=== PATIENT | female | born 1940 | race Caucasian/White ===

== ENCOUNTER 2017-05-21 22:41 | Emergency (ER) | payer MEDICARE, OTHER ==
[2017-05-21] MEDS ORDERED: LORazepam 0.5 MG Tab PO ONE (23:08)
--- NOTE | 2017-05-21 23:08 | EDM.PDOC ---
ED HPI GENERAL MEDICAL PROBLEM - General Chief Complaint: General Stated Complaint: PT BLOOD PRESSURE HIGH Time Seen by Provider: 05/21/17 22:59 - History of Present Illness INITIAL COMMENTS - FREE TEXT/NARRATIVE: HISTORY AND PHYSICAL: History of present illness: The patient is a 76-year-old female who follows in our family practice clinic and actually has a scheduled appointment tomorrow with Dr. Low for discussion about her blood pressure and presents tonight saying that it increased more significantly and she is concerned. The patient says she's been under a lot of stress this year as her was very ill and recently in March. She has noted over the last few months that her blood pressures been on the higher side and in fact had her lisinopril doubled to 20 mg once a day in March. She has a follow-up appointment scheduled tomorrow and she says over the last week or so it has been running on the higher side with systolics in the 160s. This evening she checked it and it was 188 which made her very nervous and anxious and then she took it again on the other side and it was elevated to the 200s so she came for evaluation. The patient has been eating and drinking normally and has not had increased sodium in her diet. She has no swelling in her legs no chest pain no shortness of breath abdominal pain or vomiting and no urinary complaints. She is not lightheaded or dizzy and has no headaches. She has no weakness or neurosensory changes in her extremities. She admits that she has been very anxious since the of her and she is anxious about her blood pressure. Review of systems: As per history of present illness and below otherwise all systems reviewed and negative. Past medical history: As per history of present illness and as reviewed below otherwise noncontributory. Surgical history: As per history of present illness and as reviewed below otherwise noncontributory. Social history: No reported history of drug or alcohol abuse. Family history: As per history of present illness and as reviewed below otherwise noncontributory. Physical exam: Gen.: Well-developed well-nourished male who is nontoxic and moves easily in the ED. Her blood pressure of 235/117 as noted by me. Clearly and easily HEENT: Atraumatic, normocephalic, pupils reactive, negative for conjunctival pallor or scleral icterus, mucous membranes moist, throat clear, neck supple, nontender, trachea midline. Lungs: Clear to auscultation, breath sounds equal bilaterally, chest nontender. Heart: S1S2, regular, negative for clicks, rubs, or JVD. Abdomen: Soft, nondistended, nontender. Negative for masses or hepatosplenomegaly. NABS. Pelvis: Stable nontender. Genitourinary: Deferred. Rectal: Deferred. Extremities: Atraumatic, negative for cords or calf pain. Neurovascular unremarkable. No pedal edema or leg asymmetry Neuro: Awake, alert, oriented. Cranial nerves II through XII unremarkable. Cerebellum unremarkable. Motor and sensory unremarkable throughout. Exam nonfocal. Diagnostics: EKG chest x-ray CBC CMP troponin UA urine culture Therapeutics: Ativan by mouth, lisinopril 10 mg Patient's current blood pressure at 0040 is 181/112. I will give the patient an extra dose of lisinopril and reevaluate. 0120: Patient's current blood pressure is 158/96 she is aware of all testing results including the early UTI. I will give her a prescription for antibiotics as she does not want to fill them via [facility]. I have told her to keep her appointment at [address] Au to discuss her blood pressure medication dosing and to inform him that she was here this evening and that he can look at her testing results and my note. She is comfortable with discharge home with follow-up in the morning. Impression: Hypertension poorly controlled, stable improved, early UTI Definitive disposition and diagnosis as appropriate pending reevaluation and review of above. - Related Data Allergies Allergy/AdvReac Type Severity Reaction Status Date / Time No Known Allergies Allergy Verified 05/21/17 23:09 Home Meds: Home Meds Ascorbic Acid [Vitamin C] 500 mg PO DAILY 05/21/17 [History] Aspirin 81 mg PO DAILY 05/21/17 [History] Calcium Carbonate [Calcium] 1,200 mg PO DAILY 05/21/17 [History] Escitalopram Oxalate 10 mg PO DAILY 05/21/17 [History] Fish Oil/[place]-3 Fatty Acids [Fish Oil 1,000 MG] 1 cap PO DAILY 05/21/17 [ History] Lisinopril 20 mg PO DAILY 05/21/17 [History] Magnesium 500 mg PO DAILY 05/21/17 [History] Multivitamin [Multi-Vitamin Daily] 1 tab PO DAILY 05/21/17 [History] ED ROS GENERAL - Review of Systems Review Of Systems: ROS reveals no pertinent complaints other than HPI. ED EXAM, GENERAL - Physical Exam Exam: See Below (see dictation) Course - Vital Signs Last Recorded V/S: Last Vital Signs Temp 36.3 C 05/21/17 22:41 Pulse 64 05/22/17 00:36 Resp 13 05/22/17 00:36 BP 183/104 H 05/22/17 00:46 Pulse Ox 100 05/22/17 00:36 - Orders/Labs/Meds Orders: Active Orders 24 hr Category Date Time Status EKG Documentation Completion [RC] STAT Care 05/21/17 23:05 Active Chest 1V Frontal [CR] Stat Exams 05/21/17 23:06 Taken CULTURE URINE [RM] Stat Lab 05/22/17 00:35 Received UA W/MICROSCOPIC [URIN] Stat Lab 05/22/17 01:19 Ordered Labs: Laboratory Tests 05/21/17 05/21/17 05/22/17 Range/Units 23:34 23:34 00:35 WBC 6.05 (4.0-11.0) K/uL RBC 4.32 (4.30-5.90) M/uL Hgb 13.4 (12.0-16.0) g/dL Hct 40.2 (36.0-46.0) % MCV 93.1 (80.0-98.0) fL MCH 31.0 (27.0-32.0) pg MCHC 33.3 (31.0-37.0) g/dL RDW Std Deviation 47.1 (28.0-62.0) fl RDW Coeff of [place] 14 (11.0-15.0) % Plt Count 207 (150-400) K/uL MPV 9.90 (7.40-12.00) fL Neut % (Auto) 54.4 (48.0-80.0) % Lymph % (Auto) 34.9 (16.0-40.0) % [place] % (Auto) 8.1 (0.0-15.0) % Eos % (Auto) 2.1 (0.0-7.0) % Baso % (Auto) 0.5 (0.0-1.5) % Neut # (Auto) 3.3 (1.4-5.7) K/uL Lymph # (Auto) 2.1 (0.6-2.4) K/uL [place] # (Auto) 0.5 (0.0-0.8) K/uL Eos # (Auto) 0.1 (0.0-0.7) K/uL Baso # (Auto) 0.0 (0.0-0.1) K/uL Nucleated RBC % 0.0 /100WBC Nucleated RBCs # 0 K/uL Sodium 142 (136-146) mmol/L Potassium 3.8 (3.5-5.1) mmol/L Chloride 104 (98-110) mmol/L Carbon Dioxide 27 (21-31) mmol/L BUN 18 (6.0-23.0) mg/dL Creatinine 0.8 (0.6-1.5) mg/dL Est Cr Clr Drug Dosing TNP Estimated GFR (MDRD) > 60.0 ml/min Glucose 118 H (60-110) mg/dL Calcium 10.5 (8.8-10.8) mg/dL Total Bilirubin 0.5 (0.1-1.5) mg/dL AST 29 (5-40) IU/L ALT 28 (8-54) IU/L Alkaline Phosphatase 46 (40-150) Troponin I < 0.10 (0.0-0.29) NG/ML Total Protein 7.3 (6.0-8.0) g/dL Albumin 4.5 (3.4-4.8) g/dL Globulin 2.8 (2.0-3.5) g/dL Albumin/Globulin Ratio 1.6 (1.3-2.8) Urine Color YELLOW Urine Appearance HAZY Urine pH 7.5 (5.0-8.0) Ur Specific [place] 1.010 (1.001-1.035) Urine Protein NEGATIVE (NEGATIVE) mg/dL Urine Glucose (UA) NEGATIVE (NEGATIVE) mg/dL Urine Ketones NEGATIVE (NEGATIVE) mg/dL Urine Occult Blood TRACE-LYSED (NEGATIVE) Urine Nitrite NEGATIVE (NEGATIVE) Urine Bilirubin NEGATIVE (NEGATIVE) Urine Urobilinogen 0.2 (<2.0) EU/dL Ur Leukocyte Esterase MODERATE (NEGATIVE) Urine RBC 1-2 (0-2/HPF) Urine WBC 6-8 (0-5/HPF) Ur Epithelial Cells FEW (NONE-FEW) Urine Bacteria FEW (NEGATIVE) Meds: Medications Discontinued Medications Generic Name Dose Route Start Last Admin Trade Name Rei PRN Reason Stop Dose Admin Lisinopril 10 mg 05/22/17 00:40 05/22/17 00:46 Prinivil PO 05/22/17 00:41 10 mg ONETIME ONE Administration Lorazepam 0.5 mg 05/21/17 23:08 05/21/17 23:17 Ativan PO 05/21/17 23:09 0.5 mg ONETIME ONE Administration Departure - Departure Time of Disposition: Disposition: Home, Self-Care 01 Condition: Good Clinical Impression: Poorly-controlled hypertension UTI (urinary tract infection) Qualifiers: Urinary tract infection type: site unspecified Hematuria presence: without hematuria Qualified Code(s): N39.0 - Urinary tract infection, site not specified - Discharge Information Referrals: PCP,None [Primary Care Provider] - Forms: ED Department Discharge Additional Instructions: The following information is given to patients seen in the emergency department who are being discharged to home. This information is to outline your options for follow-up care. We provide all patients seen in our emergency department with a follow-up referral. The need for follow-up, as well as the timing and circumstances, are variable depending upon the specifics of your emergency department visit. If you don't have a primary care physician on staff, we will provide you with a referral. We always advise you to contact your personal physician following an emergency department visit to inform them of the circumstance of the visit and for follow-up with them and/or the need for any referrals to a consulting specialist. The emergency department will also refer you to a specialist when appropriate. This referral assures that you have the opportunity for followup care with a specialist. All of these measure are taken in an effort to provide you with optimal care, which includes your followup. Under all circumstances we always encourage you to contact your private physician who remains a resource for coordinating your care. When calling for followup care, please make the office aware that this follow-up is from your recent emergency room visit. If for any reason you are refused follow-up, please contact the [facility] emergency department at and ask to speak to the emergency department charge nurse. [facility] Primary care- Internal Medicine and Family [place] [id number] [place] [id number] Please keep your appointment this morning in the clinic with Dr. Low and inform him of melisa's visit so that he can review the labs and my notes. Please take your lisinopril in the morning as you normally do. He states her blood pressure before taking those meds. Return to ER as needed and as discussed. - My Orders Last 24 Hours: My Active Orders 05/21/17 23:05 EKG Documentation Completion [RC] STAT 05/21/17 23:06 Chest 1V Frontal [CR] Stat 05/22/17 00:35 CULTURE URINE [RM] Stat 05/22/17 01:19 UA W/MICROSCOPIC [URIN] Stat - Assessment/Plan Last 24 Hours: My Active Orders 05/21/17 23:05 EKG Documentation Completion [RC] STAT 05/21/17 23:06 Chest 1V Frontal [CR] Stat 05/22/17 00:35 CULTURE URINE [RM] Stat 05/22/17 01:19 UA W/MICROSCOPIC [URIN] Stat
[2017-05-22 00:28] LABS: CHLORIDE,CL 104 mmol/L (98-110); SODIUM,NA 142 mmol/L (136-146)
[2017-05-22] MEDS ORDERED: Lisinopril 10 MG Tab PO ONE (00:40)
--- NOTE | 2017-05-22 10:16 | CR ---
EXAM DATE: 05/21/17 PATIENT'S AGE: 76 Patient: GAVINO DUVAL Facility: [place], [place] Site . Site : 1940 Study: XRay Chest [id number]/13/2018 11:36:34 PM Ordering Physician: Doctor Rivera Final Report: INDICATION: Hypertension, shortness of breath TECHNIQUE: Chest radiograph 2 views COMPARISON: 09/01/13 FINDINGS: Mediastinum: The heart silhouette is normal in size and morphology. The mediastinum is normal in appearance. Lungs: Both lungs are unremarkable in appearance. Mild right apical pleural scarring noted. No sign of pleural effusion seen. No pneumothorax is identified. Bones and soft tissue: Unremarkable for age. IMPRESSION: 1. No acute cardiopulmonary disease is seen. Dictated by: Rachid Lopez MD @ 05/21/2017 23:38:00 (Electronic Signature) Report Signed by Proxy. MTDAndi
== END 2017-05-22 01:50 | disposition home or self-care (01) ==
LOC: MW.ED 22:41
DX: I10 Essential (primary) hypertension (principal); N39.0 Urinary tract infection, site not specified; Z79.82 Long term (current) use of aspirin; Z79.899 Other long term (current) drug therapy; F41.9 Anxiety disorder, unspecified
CPT/HCPCS: 36415; 71045; 80053; 81001; 84484; 85025; 87086; 93005; 99284; A9270; G0463; 99213

== ENCOUNTER 2018-07-15 11:41 | Day surgery (SDC) | payer MEDICARE, OTHER ==
[~2018-07-15 11:41] MED LIST: Lactated Ringers 1,000 ML IV SCH; Midazolam 1 MG/ML 2 ML SDV ONE; Propofol 200 MG/20 ML SDV ONE; Sodium Chloride 0.9% 10 ML SDV IV PRN; Sodium Chloride 0.9% 10 ML Syringe FLUSH PRN; Sodium Chloride 0.9% 2.5 ML Syringe FLUSH PRN; fentaNYL 100 MCG/2 ML SDV ONE
--- NOTE | 2018-07-15 12:44 | PCM.PREANE ---
Preanesthetic Assessment - Anesthesia/Transfusion/Family Hx Anesthesia History: Prior Anesthesia Without Reaction Family History of Anesthesia Reaction: No Transfusion History: No Prior Transfusion(s) - Review of Systems General: No Symptoms Pulmonary: No Symptoms Cardiovascular: No Symptoms Gastrointestinal: No Symptoms Neurological: No Symptoms Other: Reports: None - Physical Assessment NPO Status Date: 07/14/18 Height: 5 ft 7 in Weight: 67.132 kg ASA Class: 2 Mental Status: Alert & Oriented x3 Airway Class: Mallampati = 2 Dentition: Reports: Bridge ROM/Head Extension: Full Lungs: Clear to Auscultation, Normal Respiratory Effort Cardiovascular: Regular Rate, Regular Rhythm - Allergies Allergies/Adverse Reactions: Allergies Allergy/AdvReac Type Severity Reaction Status Date / Time atenolol Allergy Fainting Verified 07/14/18 09:00 desvenlafaxine [From Pristiq] Allergy Nausea Verified 07/14/18 09:00 lisinopril Allergy Cough Verified 07/14/18 09:00 - Blood Blood Available: No - Anesthesia Plan Pre-Op Medication Ordered: None - Acknowledgements Anesthesia Type Planned: General Anesthesia, MAC Pt an Appropriate Candidate for the Planned Anesthesia: Yes Alternatives and Risks of Anesthesia Discussed w Pt/Guardian: Yes Pt/Guardian Understands and Agrees with Anesthesia Plan: Yes Additional Comments: PMH: htn, hld, benign essential tremur PLAN: mac/tiva PreAnesthesia Questionnaire - Past Health History Medical/Surgical History: Denies Medical/Surgical History HEENT History: Reports: Other (See Below) Other HEENT History: wears glasses, has upper and lower permanent partial dentures Cardiovascular History: Reports: Hypertension Gastrointestinal History: Reports: Chronic Constipation Genitourinary History: Reports: None 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: Neurological History: Reports: Other (See Below) Other Neuro History: mild essential tremor of hands Psychiatric History: Reports: Anxiety - Past Surgical History GI Surgical History: Reports: Colonoscopy Female Surgical History: Reports: Hysterectomy - SUBSTANCE USE Smoking Status *Q: Never Smoker Recreational Drug Use History: No - HOME MEDS Home Medications: Home Meds Ascorbic Acid [Vitamin C] 500 mg PO DAILY 05/21/17 [History] Aspirin 81 mg PO DAILY 05/21/17 [History] Fish Oil/[place]-3 Fatty Acids [Fish Oil 1,000 MG] 1,200 mg PO DAILY 05/21/17 [ History] Magnesium 500 mg PO DAILY 05/21/17 [History] Multivitamin [Multi-Vitamin Daily] 1 tab PO DAILY 05/21/17 [History] Cholecalciferol (Vitamin D3) [Vitamin D3] 1,000 unit PO DAILY 07/14/18 [History] Escitalopram Oxalate 20 mg PO BEDTIME 07/14/18 [History] Niacin 500 mg PO DAILY 07/14/18 [History] Olmesartan Medoxomil 40 mg PO BEDTIME 07/14/18 [History] hydroCHLOROthiazide [Hydrochlorothiazide] 25 mg PO DAILY 07/14/18 [History] - CURRENT (IN HOUSE) MEDS Current Meds: Current Medications Lactated Ringer's (Ringers, Lactated) 1,000 mls @ 125 mls/hr IV ASDIRECTED KIKI Sodium Chloride (Saline Flush) 10 ml FLUSH ASDIRECTED PRN PRN Reason: Keep Vein Open Sodium Chloride (Saline Flush) 2.5 ml FLUSH ASDIRECTED PRN PRN Reason: Keep Vein Open Sodium Chloride (Saline Flush) 10 ml FLUSH ASDIRECTED PRN PRN Reason: Keep Vein Open Sodium Chloride (Saline Flush) 2.5 ml FLUSH ASDIRECTED PRN PRN Reason: Keep Vein Open Sodium Chloride (Normal Saline) 10 ml IV ASDIRECTED PRN PRN Reason: IV Use Discontinued Medications Fentanyl (Sublimaze) Confirm Administered Dose 100 mcg .ROUTE .STK-MED ONE Stop: 07/15/18 07:49 Lidocaine HCl (Xylocaine-Mpf 1%) Confirm Administered Dose 5 mls @ as directed .ROUTE .STK-MED ONE Stop: 07/15/18 07:49 Midazolam HCl (Versed 1 Mg/Ml) Confirm Administered Dose 2 mg .ROUTE .STK-MED ONE Stop: 07/15/18 07:49 Propofol (Diprivan 20 Ml) Confirm Administered Dose 200 mg .ROUTE .STK-MED ONE Stop: 07/15/18 07:49
--- NOTE | 2018-07-15 13:54 | PCM.OPNOTE ---
- General Post-Op/Procedure Note Date of Surgery/Procedure: 07/15/18 Operative Procedure(s): diagnostic colonoscopy Findings: 2 sigmoid colon polyps Pre Op Diagnosis: change in bowel habits, diagnostic colonoscopy Post-Op Diagnosis: 2 sigmoid colon polyps, lax anal sphincter Anesthesia Technique: MAC Primary Surgeon: Luisa Cunningham Pathology: 2 sigmoid colon polyps EBL in mLs: 0 Condition: Good
[2018-07-15] MEDS ORDERED: Propofol 200 MG/20 ML SDV ONE (14:34)
--- NOTE | 2018-07-15 14:52 | PCM.POSTAN ---
POST ANESTHESIA ASSESSMENT - MENTAL STATUS Mental Status: Alert, Oriented - RESPIRATORY Respiratory Status: Respiratory Rate WNL, Airway Patent, O2 Saturation Stable - CARDIOVASCULAR CV Status: Pulse Rate WNL, Blood Pressure Stable - GASTROINTESTINAL GI Status: No Symptoms - POST OP HYDRATION Hydration Status: Adequate & Stable
--- NOTE | 2018-07-15 14:52 | PCM48HPAN ---
Post Anesthesia Note - EVALUATION WITHIN 48HRS OF ANESTHETIC Vital Signs in Normal Range: Yes Patient Participated in Evaluation: Yes Respiratory Function Stable: Yes Airway Patent: Yes Cardiovascular Function Stable: Yes Hydration Status Stable: Yes Pain Control Satisfactory: Yes Nausea and Vomiting Control Satisfactory: Yes Mental Status Recovered: Yes Resp Rate: 8
--- NOTE | 2018-07-15 17:41 | OR ---
SURGEON: LUISA CUNNINGHAM MD DATE OF PROCEDURE: 07/15/2018 PREOPERATIVE DIAGNOSIS: Change in bowel habits. POSTOPERATIVE DIAGNOSIS: Sigmoid colon polyps x2. PROCEDURE PERFORMED: Diagnostic colonoscopy. ENDOSCOPIST: Luisa Cunningham MD. ANESTHESIA: MAC. INSTRUMENT USED: Olympus colonoscope. EXTENT OF EXAM: To the cecum. PREPARATION: Good. LIMITATIONS: None. INDICATIONS FOR EXAMINATION: The patient is a 77-year-old female who presents with a change in her bowel habits. We discussed the need for diagnostic colonoscopy. I explained the procedure, expected perioperative course, and risks including bleeding, infection, or damage to surrounding structures including perforation. The patient verbalized understanding and wishes to proceed. PROCEDURE IN DETAIL: The patient was brought into the endoscopy suite and placed in a left lateral decubitus position. A time-out was completed verifying the patient's name, age, date of , allergies, and procedure to be performed. Monitored anesthesia care was induced and continuous oxygen was provided via nasal cannula throughout the procedure. After adequate sedation was achieved, a digital rectal exam was performed. The patient appeared to have a very lax sphincter muscle, but I did not feel any other abnormalities. A well lubricated colonoscope was inserted into the rectum and advanced under direct visualization to the level of the cecum. The cecum was identified by both visual and anatomic landmarks. A photograph was taken of the cecal cap, however, I was unable to retroflex the scope within the cecum due to looping of the scope more proximally. The scope was then straightened out and fully withdrawn while examining the color, texture, anatomy, and integrity of the mucosa from the cecum to the anal canal. The patient was found to have 2 very small sessile polyps in the distal sigmoid colon. These were removed using a cold biopsy forceps. They were sent to Pathology, labeled as sigmoid colon polyp #1 and sigmoid colon polyp #2. The scope was then brought into the rectum and retroflexed to allow visualization of the anal canal opening. This appeared grossly normal and a photograph was taken. The scope was then straightened out and fully withdrawn. The cecum to anus time was 11 minutes. The patient tolerated the procedure well and was taken to PACU in stable condition. ENDOSCOPIC DIAGNOSIS: Sigmoid colon polyps x2. RECOMMENDATIONS: We will follow up with the patient in clinic in 2 weeks to discuss both the Pathology results of the polypectomy as well as the sphincter muscle laxity that I discovered on exam today. BRITTANY / JUAN /[id number]
== END 2018-07-15 15:15 | disposition home or self-care (01) ==
LOC: MW.SDS 11:41
PROVIDERS: ATTEND Surgery
DX: K63.5 Polyp of colon (principal); I10 Essential (primary) hypertension; E78.00 Pure hypercholesterolemia, unspecified; F41.9 Anxiety disorder, unspecified; G25.0 Essential tremor; Z88.8 Allergy status to other drugs, medicaments and biological substances; Z79.82 Long term (current) use of aspirin; Z79.899 Other long term (current) drug therapy
CPT/HCPCS: 45380; 88305; J2001; J2250; J2704; J3010

== ENCOUNTER 2020-06-29 22:37 | Emergency (ER) | payer MEDICARE, OTHER ==
--- NOTE | 2020-06-29 22:51 | EDM.PDOC ---
ED HPI GENERAL MEDICAL PROBLEM - General Chief Complaint: Cardiovascular Problem Stated Complaint: HIGH BP Time Seen by Provider: 06/29/20 22:50 - History of Present Illness INITIAL COMMENTS - FREE TEXT/NARRATIVE: HISTORY AND PHYSICAL: History of present illness: This is a 79-year-old female with a history significant for hypertension who presents ER today secondary to elevated blood pressure noted this evening. Patient reports that she had a mild headache prior to checking her blood pressure. Patient denies any fevers, shakes, chills, nausea, vomiting, diarrhea, dysuria, frequency, urgency, chest pain, shortness of breath, abdominal pain. Patient reports that she has been compliant with her antihypertensive medication. Patient reports that she is on olmesartan Medox 40 mg daily. Patient has an appointment tomorrow morning at 9 with her primary care physician. Review of systems: As per history of present illness and below otherwise all systems reviewed and negative. Past medical history: As per history of present illness and as reviewed below otherwise noncontributory. Surgical history: As per history of present illness and as reviewed below otherwise noncontributory. Social history: No reported history of drug or alcohol abuse. Family history: As per history of present illness and as reviewed below otherwise noncontributory. Physical exam: This patient was seen and evaluated during the 2019 SARS-CoV-2 novel coronavirus pandemic period. Community viral transmission is ongoing at time of this encounter and the emergency department is operating under pandemic response procedures. Constitutional: Patient is oriented to person, place, and time. Appears well- developed and well-nourished. No distress. HEENT: Moist mucous membranes Head: Normocephalic and atraumatic Eyes: Right eye exhibits no discharge. Left eye exhibits no discharge. No scleral icterus Neck: Normal range of motion. No tracheal deviation present. Cardiovascular: Normal rate and regular rhythm. Pulmonary: Effort normal, no respiratory distress. Abdominal: No distention Musculoskeletal: Normal range of motion Neurologic: Alert and oriented to person, place and time. Skin: [place], warm and dry. Psychiatric: Normal mood and affect. Behavior is normal. Judgment and thought content normal. Nursing note and vital signs have been reviewed Diagnostics: CBC, CMP, troponin, EKG EKG: As interpreted by ER physician: Marie: Nonspecific ST-T wave abnormalities Normal axis No evidence of ST elevation AK Normal sinus rhythm heart rate of 68 Therapeutics: [Clonidine 0.2 mg p.o. x1 Assessment and plan: This is a 79-year-old female who presents ER today secondary to elevated blood pressure. Patient does show me her blood pressure readings at home and she has been as low as 117/80 within the last couple weeks. Patient's blood pressure also has been as high as 160/70. This evening upon arrival to the ED the patient was noted to have a blood pressure of 213/109. Patient does have an appointment tomorrow with her primary care physician who can assist with adjusting her medications. Patient will be given clonidine 0.2 mg p.o. here in the ED, will check her CBC, CMP, troponin. Patient's EKG is nondiagnostic without any evidence of acute ischemic changes. Patient's blood pressure is significantly improved on the ED. Patient's labs are all within normal limits. Patient feels much improved and is requesting to be discharged home. Patient has an appointment already scheduled in the morning with her primary care physician. I have written down for the patient the medications that she has received in order to give to her family physician tomorrow. Reassessment at the time of disposition demonstrates that the patient is in no acute distress. The patient has remained stable throughout the entire ED visit and is without objective evidence for acute process requiring urgent intervention or hospitalization. The patient is stable for discharge, counseling is provided as documented above, discussed symptomatic treatment and specific conditions for return. I have spoken with the patient/caregiver and discussed todays findings, in addition to providing specific details for the plan of care. Questions are answered and there is agreement with the plan. Definitive disposition and diagnosis as appropriate pending reevaluation and review of above. - Related Data Allergies Allergy/AdvReac Type Severity Reaction Status Date / Time atenolol Allergy Fainting Verified 06/29/20 22:47 desvenlafaxine [From Pristiq] Allergy Nausea Verified 06/29/20 22:47 lisinopril Allergy Cough Verified 06/29/20 22:47 Home Meds: Home Meds Ascorbic Acid [Vitamin C] 500 mg PO DAILY 05/21/17 [History] Aspirin 81 mg PO DAILY 05/21/17 [History] Fish Oil/[place]-3 Fatty Acids [Fish Oil 1,000 MG] 1,200 mg PO DAILY 05/21/17 [History] Magnesium 500 mg PO DAILY 05/21/17 [History] Multivitamin [Multi-Vitamin Daily] 1 tab PO DAILY 05/21/17 [History] Cholecalciferol (Vitamin D3) [Vitamin D3] 1,000 unit PO DAILY 07/14/18 [History] Escitalopram Oxalate 20 mg PO BEDTIME 07/14/18 [History] Niacin 500 mg PO DAILY 07/14/18 [History] Olmesartan Medoxomil 40 mg PO BEDTIME 07/14/18 [History] Potassium Chloride 10 meq PO DAILY 06/29/20 [History] Past Medical History - Past Health History Medical/Surgical History: Denies Medical/Surgical History HEENT History: Reports: Other (See Below) Other HEENT History: wears glasses, has upper and lower permanent partial dentures Cardiovascular History: Reports: Hypertension Gastrointestinal History: Reports: Chronic Constipation Genitourinary History: Reports: None FINANCIAL MANAGEMENT History: Reports: Neurological History: Reports: Other (See Below) Other Neuro History: mild essential tremor of hands Psychiatric History: Reports: Anxiety - Past Surgical History GI Surgical History: Reports: Colonoscopy Female Surgical History: Reports: Hysterectomy Social & Family History - Family History Family Medical History: No Pertinent Family History ED ROS GENERAL - Review of Systems Review Of Systems: See Below ED EXAM, GENERAL - Physical Exam Exam: See Below Course - Vital Signs Last Recorded V/S: Last Vital Signs Temp 97.7 F 06/30/20 00:20 Pulse 64 06/30/20 00:20 Resp 18 06/30/20 00:20 BP 132/84 06/30/20 00:20 Pulse Ox 97 06/30/20 00:20 - Orders/Labs/Meds Labs: Laboratory Tests 06/29/20 06/29/20 Range/Units 23:14 23:14 WBC 6.63 (4.0-11.0) K/uL RBC 4.18 L (4.30-5.90) M/uL Hgb 13.1 (12.0-16.0) g/dL Hct 39.3 (36.0-46.0) % MCV 94.0 (80.0-98.0) fL MCH 31.3 (27.0-32.0) pg MCHC 33.3 (31.0-37.0) g/dL RDW Std Deviation 46.8 (28.0-62.0) fl RDW Coeff of [place] 14 (11.0-15.0) % Plt Count 225 (150-400) K/uL MPV 9.70 (7.40-12.00) fL Neut % (Auto) 55.4 (48.0-80.0) % Lymph % (Auto) 35.1 (16.0-40.0) % [place] % (Auto) 7.2 (0.0-15.0) % Eos % (Auto) 1.8 (0.0-7.0) % Baso % (Auto) 0.5 (0.0-1.5) % Neut # (Auto) 3.7 (1.4-5.7) K/uL Lymph # (Auto) 2.3 (0.6-2.4) K/uL [place] # (Auto) 0.5 (0.0-0.8) K/uL Eos # (Auto) 0.1 (0.0-0.7) K/uL Baso # (Auto) 0.0 (0.0-0.1) K/uL Nucleated RBC % 0.0 /100WBC Nucleated RBCs # 0 K/uL Sodium 138 (136-145) mmol/L Potassium 3.9 (3.5-5.1) mmol/L Chloride 102 (98-107) mmol/L Carbon Dioxide 27.5 (21.0-32.0) mmol/L BUN 27 H (7.0-18.0) mg/dL Creatinine 1.1 H (0.6-1.0) mg/dL Est Cr Clr Drug Dosing 40.33 mL/min Estimated GFR (MDRD) 47.9 ml/min Glucose 104 (74-106) mg/dL Calcium 9.5 (8.5-10.1) mg/dL Total Bilirubin 0.4 (0.2-1.0) mg/dL AST 23 (15-37) IU/L ALT 30 (14-63) IU/L Alkaline Phosphatase 49 (46-116) U/L Troponin I < 0.050 (0.000-0.056) ng/mL Total Protein 7.4 (6.4-8.2) g/dL Albumin 3.9 (3.4-5.0) g/dL Globulin 3.5 (2.6-4.0) g/dL Albumin/Globulin Ratio 1.1 (0.9-1.6) Meds: Medications Discontinued Medications Generic Name Dose Route Start Last Admin Trade Name Rei PRBing Reason Stop Dose Admin Clonidine HCl 0.2 mg 06/29/20 23:05 06/29/20 23:10 Clonidine 0.1 Mg Tab PO 06/29/20 23:06 0.2 mg ONETIME ONE Administration Departure - Departure Time of Disposition: 00:11 Disposition: Home, Self-Care 01 Condition: Good Clinical Impression: Hypertension Qualifiers: Hypertension type: unspecified Qualified Code(s): I10 - Essential (primary) hypertension Instructions: Hypertension, Adult, [id number] Referrals: Presley Low MD [Primary Care Provider] - Forms: ED Department Discharge Additional Instructions: You were seen and evaluated in the ER today secondary to your markedly elevated blood pressure. You were given clonidine 0.2 mg p.o. in the ED with significant improvement in your blood pressure. Please keep your appointment tomorrow morning with your family doctor so that they can assist you with managing your elevated blood pressure. Please return to the ER for any new or concerning symptoms. The following information is given to patients seen in the emergency department who are being discharged to home. This information is to outline your options for follow-up care. We provide all patients seen in our emergency department with a follow-up referral. The need for follow-up, as well as the timing and circumstances, are variable depending upon the specifics of your emergency department visit. If you don't have a primary care physician on staff, we will provide you with a referral. We always advise you to contact your personal physician following an emergency department visit to inform them of the circumstance of the visit and for follow-up with them and/or the need for any referrals to a consulting specialist. The emergency department will also refer you to a specialist when appropriate. This referral assures that you have the opportunity for follow-up care with a specialist. All of these measure are taken in an effort to provide you with optimal care, which includes your follow-up. Under all circumstances we always encourage you to contact your private physician who remains a resource for coordinating your care. When calling for follow-up care, please make the office aware that this follow-up is from your recent emergency room visit. If for any reason you are refused follow-up, please contact the [facility] Emergency Department at and asked to speak to the emergency department charge nurse. [facility] [address] [place] [id number] [facility] [address] [place] [id number] Sepsis Event Note (ED) - Evaluation Sepsis Screening Result: No Definite Risk - Focused Exam Vital Signs: Vital Signs Temp Pulse Resp BP BP Pulse Ox 06/30/20 00:20 97.7 F 64 18 132/84 97 06/29/20 23:52 157/95 H 06/29/20 23:10 190/117 H 06/29/20 22:48 98.4 F 68 16 213/109 H 95
[2020-06-29] MEDS ORDERED: cloNIDine 0.1 MG Tab PO ONE (23:05)
[2020-06-29 23:45] LABS: BLOOD UREA NITROGEN,BUN 27 mg/dL (7.0-18.0); CARBON DIOXIDE,CO2 27.5 mmol/L (21.0-32.0); CHLORIDE,CL 102 mmol/L (98-107); GLUCOSE RANDOM 104 mg/dL (74-106); POTASSIUM,K 3.9 mmol/L (3.5-5.1); SODIUM,NA 138 mmol/L (136-145)
== END 2020-06-30 00:20 | disposition home or self-care (01) ==
LOC: MW.ED 22:37
DX: I10 Essential (primary) hypertension (principal); Z88.8 Allergy status to other drugs, medicaments and biological substances; Z79.82 Long term (current) use of aspirin; Z79.899 Other long term (current) drug therapy
CPT/HCPCS: 36415; 80053; 84484; 85025; 93005; 99283; A9270

== ENCOUNTER 2025-02-15 13:45 | Observation (INO) | payer MEDICARE ==
[2025-02-15] MEDS ORDERED: Sodium Chloride 0.9% 2.5 ML Syringe FLUSH PRN (13:59)
[2025-02-15] MEDS ORDERED: Sodium Chloride 0.9% 10 ML Syringe FLUSH PRN (13:59)
[2025-02-15] MEDS ORDERED: Ondansetron 4 MG/2 ML SDV IVPUSH PRN (17:20)
[2025-02-15] MEDS ORDERED: Ondansetron 4 MG Tab.DIS PO PRN (17:20)
[2025-02-15 18:48] LABS: APPEARANCE,URINE SLT CLOUDY; GLUCOSE,URINE NEGATIVE (NEGATIVE); OCCULT BLOOD,URINE SMALL (NEGATIVE)
[2025-02-15 19:02] LABS: EPITHELIAL CELLS,URINE NOT SEEN (NONE-FEW)
[2025-02-15] MEDS: cefTRIAXone 1 GM in Water For Injection, Sterile 10 ML IVPUSH SCH (21:53)
[2025-02-16 05:45] LABS: BASOPHILS ABSOLUTE AUTO 0.04 K/uL (0.00-0.20); BASOPHILS PERCENT AUTO 0.4 % (0.0-1.0); EOSINOPHILS ABSOLUTE AUTO 0.07 K/uL (0.00-0.45); EOSINOPHILS PERCENT AUTO 0.8 % (0.0-6.0); IMMATURE GRAN ABSOLUTE AUTO 0.01 K/uL (0.00-0.05); IMMATURE GRAN PERCENT AUTO 0.1 % (0.0-0.4); LYMPHOCYTES ABSOLUTE AUTO 1.48 K/uL (1.00-4.80); LYMPHOCYTES PERCENT AUTO 16.5 % (24.0-44.0); MEAN PLATELET VOLUME 9.6 fL (9.4-12.3); MONOCYTES ABSOLUTE AUTO 0.84 K/uL (0.00-0.80); MONOCYTES PERCENT AUTO 9.4 % (0.0-8.0); NEUTROPHILS ABSOLUTE AUTO 6.51 K/uL (1.80-7.70); NEUTROPHILS PERCENT AUTO 72.8 % (41.0-71.0); NRBC ABSOLUTE 0.00 K/uL (0.00-0.02); NRBC PERCENT 0.0 /100WBC (0.0-0.2); PLATELET COUNT,PLT 171 K/uL (150-400); RED BLOOD CELL COUNT 3.93 M/uL (4.10-5.30); WHITE BLOOD CELL COUNT,WBC 8.95 K/uL (3.9-11.3)
[2025-02-16 06:07] LABS: A/G RATIO 0.9 (0.9-1.6); ALANINE AMINOTRANSFERASE,ALT 23.0 IU/L (14-63); ASPARTATE AMNIOTRANSFERASE,AST 21.0 IU/L (15-37); BILIRUBIN TOTAL 0.4 mg/dL (0.2-1.0); BLOOD UREA NITROGEN,BUN 30.0 mg/dL (7.0-18.0); CARBON DIOXIDE,CO2 27.6 mmol/L (21.0-32.0); CHLORIDE,CL 101.0 mmol/L (98-107); CREATININE 1.2 mg/dL (0.6-1.0); EST CRCL DRUG DOSING (CG) 33.94 mL/min; GLUCOSE RANDOM 107.0 mg/dL (74-106); POTASSIUM,K 3.3 mmol/L (3.5-5.1); PROTEIN TOTAL,TP 6.6 g/dL (6.4-8.2); SODIUM,NA 138.0 mmol/L (136-145)
[2025-02-16 06:08] LABS: ESTIMATED GFR 45.0 mL/min (>60)
[2025-02-16] MEDS: Potassium Chloride 20 MEQ Tab.ER PO ONE (08:48)
[2025-02-16] MEDS: Cholecalciferol (Vitamin D3) 25 MCG Tab PO SCH (08:48)
== END 2025-02-16 11:45 | disposition home or self-care (01) ==
LOC: MW.ED 13:45 → MW.MS 16:20
PROVIDERS: ADMIT Internal Medicine; ATTEND Internal Medicine
DX: N17.9 Acute kidney failure, unspecified (principal); I12.9 Hypertensive chronic kidney disease with stage 1 through stage 4 chronic kidney disease, or unspecified chronic kidney disease; N18.9 Chronic kidney disease, unspecified; K76.89 Other specified diseases of liver; R68.83 Chills (without fever); F41.8 Other specified anxiety disorders; E86.0 Dehydration; R19.7 Diarrhea, unspecified; Z87.19 Personal history of other diseases of the digestive system; Z79.82 Long term (current) use of aspirin; Z79.899 Other long term (current) drug therapy; Z20.822 Contact with and (suspected) exposure to COVID-19
CPT/HCPCS: 36415; 74176; 80053; 81001; 83605; 83735; 83880; 84300; 85025; 85652; 86140; 87040; 87086; 87428; 93005; 96360; 99285; A9270; J0696; J7030; 93010; 96361; 96374; 99284; G0378